=== PATIENT | female | born 1985 | race Caucasian/White ===

== ENCOUNTER 2017-04-30 13:55 | Emergency (ER) | payer OTHER ==
[2017-04-30 14:21] VITALS: BP 131/61; PULSE 73; RESP 16; TEMP 98.1; O2SAT 100
--- NOTE | 2017-04-30 14:49 | PD ---
HPI Chief Complaint: Related Problem Time Seen by Provider: 14:48 Travel History International Travel<30 days: No Contact w/Intl Traveler<30days: No Traveled to known affect area: No History of Present Illness HPI has obgyn [place]. patient does not recall blood type. onset of vaginal spotting yesterday which turned into a heavier flow today. denies pain with this, only comes in due to concern of bleeding during . per patient she is about 9 weeks . nkda pmhx: denies pshx:denies PFSH Past Medical History Medical History: Denies Significant Hx ?: : 3 Para: 2 Past Surgical History Surgical History: No Previous Surgery Social History Alcohol Use: No Tobacco Use: No Substance Use: No Allergies-Medications (Allergen,Severity, Reaction): Coded Allergies: No Known Allergies (Unverified , 04/30/17) Reported Meds & Prescriptions Reported Meds & Active Scripts Active No Active Prescriptions or Reported Medications Review of Systems General / Constitutional: No: Fever Eyes: No: Visual changes HENT: No: Headaches Cardiovascular: No: Chest Pain or Discomfort Respiratory: No: Shortness of Breath Gastrointestinal: No: Abdominal Pain Genitourinary: Positive: Vaginal Bleeding Musculoskeletal: No: Pain Skin: No Rash Neurologic: No: Weakness Psychiatric: No: Depression Endocrine: No: Polydipsia Hematologic/Lymphatic: No: Easy Bruising Physical Exam Narrative GENERAL: SKIN: Warm and dry. HEAD: Atraumatic. Normocephalic. EYES: Pupils equal and round. No scleral icterus. No injection or drainage. ENT: No nasal bleeding or discharge. Mucous membranes pink and moist. NECK: Trachea midline. No JVD. CARDIOVASCULAR: Regular rate and rhythm. RESPIRATORY: No accessory muscle use. Clear to auscultation. Breath sounds equal bilaterally. GASTROINTESTINAL: Abdomen soft, non-tender, nondistended. Hepatic and splenic margins not palpable. MUSCULOSKELETAL: Extremities without clubbing, cyanosis, or edema. No obvious deformities. NEUROLOGICAL: Awake and alert. No obvious cranial nerve deficits. Motor grossly within normal limits. Five out of 5 muscle strength in the arms and legs. Normal speech. PSYCHIATRIC: Appropriate mood and affect; insight and judgment normal. Data Data Last Documented VS Orders Orders Complete Blood Count With Diff (04/30/17 14:21) Beta Hcg (Quant/Titer) (04/30/17 14:21) Abo/Rh Blood Type (04/30/17 14:21) Us Pelvis (Ques Pr/Ect)W Trans (04/30/17 15:01) Ed Discharge Order (04/30/17 17:03) Labs Laboratory Tests Test 04/30/17 14:25 White Blood Count 10.5 TH/MM3 Red Blood Count 4.28 MIL/MM3 Hemoglobin 13.2 GM/DL Hematocrit 39.1 % Mean Corpuscular Volume 91.5 FL Mean Corpuscular Hemoglobin 30.9 PG Mean Corpuscular Hemoglobin Concent 33.8 % Red Cell Distribution Width 13.0 % Platelet Count 237 TH/MM3 Mean Platelet Volume 8.2 FL Neutrophils (%) (Auto) 66.3 % Lymphocytes (%) (Auto) 27.7 % Monocytes (%) (Auto) 5.2 % Eosinophils (%) (Auto) 0.2 % Basophils (%) (Auto) 0.6 % Neutrophils # (Auto) 7.0 TH/MM3 Lymphocytes # (Auto) 2.9 TH/MM3 Monocytes # (Auto) 0.5 TH/MM3 Eosinophils # (Auto) 0.0 TH/MM3 Basophils # (Auto) 0.1 TH/MM3 CBC Comment DIFF FINAL Differential Comment Human Chorionic Gonadotropin, Quant 22234 MIU/ML MDM Medical Decision Making Medical Screen Exam Complete: Yes Emergency Medical Condition: Yes Medical Record Reviewed: Yes Differential Diagnosis missed ab v ectopic v threatened ab Narrative Course NO LEUKOCYTOSIS/ANEMIA OR LEFT SHIFT, NORMAL PLATELET COUNT QUANT 12,701 ULTRASOUND: NO IUP, but no adnexal masses noted either O POSITIVE Diagnosis Primary Impression: Threatened Patient Instructions: General Instructions, Miscarriage (ED) Additional Instructions: RECOMMEND THAT YOU SEE YOUR OBGYN AND HAVE REPEAT QUANTITATIVE HCG (TODAY 12,071 ). TO ESTABLISH IF YOU ARE COMPLETING YOUR MISCARRIAGE Scripts No Active Prescriptions or Reported Meds Disposition: DISCHARGE HOME Condition: Stable Gregory Esquivel MD Apr 30, 2017 14:49
[2017-04-30 15:44] LABS: BASOPHIL # 0.1 TH/MM3 (0-0.2); BASOPHIL % 0.6 % (0.0-2.0); EOSINOPHIL % 0.2 % (0.0-4.0); HEMATOCRIT 39.1 % (35.0-46.0); HEMOGLOBIN 13.2 GM/DL (11.6-15.3); LYMPH % 27.7 % (9.0-44.0); LYMPHOCYTE # 2.9 TH/MM3 (1.0-4.8); MEAN CELL VOLUME 91.5 FL (80.0-100.0); MEAN CORPUSCULAR HEMOGLOBIN 30.9 PG (27.0-34.0); MEAN CORPUSCULAR HGB CONC 33.8 % (32.0-36.0); MEAN PLATELET VOLUME 8.2 FL (7.0-11.0); MONO % 5.2 % (0.0-8.0); MONOCYTE # 0.5 TH/MM3 (0-0.9); NEUT % 66.3 % (16.0-70.0); PLATELET COUNT 237 TH/MM3 (150-450); RED BLOOD COUNT 4.28 MIL/MM3 (4.00-5.30); WHITE BLOOD COUNT 10.5 TH/MM3 (4.0-11.0)
--- NOTE | 2017-04-30 16:35 | RADRPT ---
EXAM DATE/TIME: 04/30/2017 15:39 [facility] COMPARISON: No previous studies available for comparison. INDICATIONS : Bleeding with . LAB(S): [facility] MEDICAL HISTORY : . SURGICAL HISTORY : None. ENCOUNTER: Initial ACUITY: 2 days PAIN SCORE: 6/10 LOCATION: Bilateral pelvis MEASUREMENTS: UTERUS: 12.3 x 7.1 x 5.4 cm ENDOMETRIAL STRIPE: 12 mm RIGHT OVARY: 4.0 x 2.6 x 2.0 cm LEFT OVARY: 3.4 x 2.4 x 1.8 cm FREE FLUID: Yes Trace in posterior cul de sac. CROWN RUMP LENGTH: Non visualized. = WKS DAYS FHR: Non visualized. BPM FINDINGS: UTERUS: No evidence of intrauterine RIGHT OVARY: Tiny simple appearing cyst LEFT OVARY: Ovary contains no mass or significant cystic lesion. MISCELLANEOUS: Minimal free fluid CONCLUSION: No IUP Danny Perry MD on April 30, 2017 at 16:32 Board Certified Radiologist. This report was verified electronically.
[2017-04-30 17:18] VITALS: BP 126/82
== END 2017-04-30 17:20 | disposition home or self-care (01) ==
LOC: NEPD 13:55
DX: O20.0 Threatened abortion (principal); Z3A.09 9 weeks gestation of pregnancy
CPT/HCPCS: 76700; 76817; 84702; 85025; 86900; 86901; 99284